=== PATIENT | male | born 1960 | race Caucasian/White ===

== ENCOUNTER 2016-09-29 08:31 | Emergency (ER) | payer MEDICARE ==
[~2016-09-29 08:31] MED LIST: AUGMENTIN875 MG PO; BUSPAR DPS10 MG PO; NORCO 5-325 TA1 EACH PO; PROAIR HFA8.5 GM IH; SPIRIVA18 MCG IH; TYLENOL DPS325 MG PO
--- NOTE | 2016-10-01 01:33 | ER ---
ADMIT: 09/29/2016 RM/LOC: ER [facility] MR#: [id number] [address] [address] [address] [place] [id number] Emergency Room Report SEX: M AGE: 56 : 1960 DATE: 09/29/2016 TIME: 0831 hours. Please refer to my T-sheet for complete H and P. Briefly, the patient is a 56-year-old who has a history of esophageal cancer and has a trach done quite sometime ago. He still smokes. He came in short of breath, feels like his trach is congested. He does not take any medications although he is supposed to take some. [facility] in [facility] he says. No fevers, but he feels short of breath. PHYSICAL EXAMINATION: VITAL SIGNS: His blood pressure is 132/100, pulse 109, respirations 20, temp 96.4, sat 83% originally on room air. GENERAL: He is anxious. HEENT: His trach sounds a little congested. LUNGS: Little bit coarse, but no wheezes. HEART: Regular. ABDOMEN: Soft. SKIN: No rash. EMERGENCY DEPARTMENT COURSE: We suctioned his trach, his sats were up to 95, he felt much better. I gave him a DuoNeb, Decadron 10 IM. Chest x-ray revealed no obvious infiltrate. He is ready for discharge. ASSESSMENT: 1. Acute chronic obstructive pulmonary disease exacerbation. 2. Acute dyspnea with trach suctioning that resolved this. 3. Nicotine abuse. PLAN: Stop smoking. Albuterol q.4 hours. We filled an MDI inhaler here for him, prednisone 20 b.i.d. for 5 days. Return if worse. [facility]. Juve Cortez MD/ ivan JOB #: [id number] CC: Juve Cortez MD, Attending Physician UNKNOWN, Family Physician
== END 2016-09-29 09:40 | disposition home or self-care (01) ==
LOC: ER 08:31
DX: J44.1 Chronic obstructive pulmonary disease with (acute) exacerbation (principal); F17.210 Nicotine dependence, cigarettes, uncomplicated

== ENCOUNTER 2016-10-25 12:48 | Emergency (ER) | payer MEDICARE ==
--- NOTE | 2016-10-26 13:17 | ER ---
ADMIT: 10/25/2016 RM/LOC: ER [facility] MR#: [id number] [address] [address] [address] [place] [address] Emergency Room Report SEX: M AGE: 56 : 1960 DATE: 10/25/2016 A 56-year-old gentleman, who is nonverbal and I cannot read he is writing that he scribbles. He apparently was drinking last night heavily per his usual and smoking. Became weak today, was lying on a curb near the street. [facility] called the ambulance. They brought him to the Emergency Department where he has a dry, nonproductive cough, mild wheezes throughout, extremely disheveled, unkempt. He is diagnosed with exacerbation of COPD and volume depletion. He was given a liter of fluids, DuoNeb, IV Solu-Medrol. Discharged. Instructed to stop smoking, stop drinking, and to follow up this coming week. DISCHARGE MEDICATIONS: 1. Medrol Dosepak. 2. Zofran. Kevin Chavez MD/ ivan JOB #: [id number] CC: Kevin Chavez MD, Attending Physician UNKNOWN, Family Physician
== END 2016-10-25 14:00 | disposition home or self-care (01) ==
LOC: ER 12:48
DX: J44.1 Chronic obstructive pulmonary disease with (acute) exacerbation (principal); J45.909 Unspecified asthma, uncomplicated; F41.9 Anxiety disorder, unspecified; F17.200 Nicotine dependence, unspecified, uncomplicated